=== PATIENT | female | born 1970 | race African-American/Black ===

== ENCOUNTER 2017-11-10 09:12 | Emergency (ER) | payer MEDICAID ==
[~2017-11-10] VITALS: Ht 170.2 cm; Wt 50.0 kg
[2017-11-10] MEDS ORDERED: IBUPROFEN 600MG TABLET PO STA (09:59)
[2017-11-10 10:35] LABS: BASOPHILS % 0.9 % (0.0-2.0); EOSINOPHILS % 1.5 % (0.0-5.0); HEMATOCRIT. 32.9 % (36.0-48.0); HEMOGLOBIN. 11.5 g/dL (12.0-16.0); LYMPHOCYTES % 18.5 % (20.0-50.0); MEAN CORPUSCULAR VOLUME 91.4 fL (81.0-99.0); MEAN PLATELET VOLUME 7.1 fl (7.4-10.4); MONOCYTES % 6.2 % (2.0-8.0); NEUTROPHILS % 72.9 % (40.0-76.0); PLATELET 275 x1000/uL (130-400); RED BLOOD CELL COUNT 3.59 mill/uL (4.2-5.4); RED CELL DISTRIBUTION WIDTH 13.6 % (11.6-14.6)
[2017-11-10 10:41] LABS: CHLORIDE 110 mEq/L (98-107)
[2017-11-10 10:46] LABS: D-DIMER 0.29 mg/L FEU (<0.50); INR 1.1; PARTIAL THROMBOPLASTIN TIME 24.3 sec (23.4-31.0); PROTHROMBIN TIME 11.7 sec (9.4-11.6)
[2017-11-10 10:56] LABS: HCG SCREEN NEGATIVE
[2017-11-10 11:27] VITALS: BP 118/70
== END 2017-11-10 11:29 | disposition home or self-care (01) ==
LOC: ER 10:00
DX: R07.89 Other chest pain (principal); D64.9 Anemia, unspecified; F43.9 Reaction to severe stress, unspecified; F17.200 Nicotine dependence, unspecified, uncomplicated; F12.10 Cannabis abuse, uncomplicated
CPT/HCPCS: 36415; 71045; 80053; 83690; 84484; 84703; 85025; 85379; 85610; 85730; 93005; 99285; 99406; Z7610

== ENCOUNTER 2020-08-02 17:58 | Emergency (ER) | payer MEDICAID, OTHER ==
[~2020-08-02] VITALS: Ht 170.2 cm; Wt 51.0 kg
[2020-08-02] MEDS ORDERED: ACETAMINOPHEN 325MG TABLET PO STA (18:39)
[2020-08-02 19:34] LABS: BASOPHILS % 0.6 % (0.0-2.0); HEMATOCRIT. 35.2 % (36.0-48.0); HEMOGLOBIN. 12.7 g/dL (12.0-16.0); LYMPHOCYTES % 22.4 % (20.0-50.0); MEAN CORPUSCULAR HEMOGLOBIN 33.5 pg (28.0-32.0); MEAN CORPUSCULAR VOLUME 93.1 fL (81.0-99.0); MEAN PLATELET VOLUME 6.9 fl (7.4-10.4); MONOCYTES % 4.7 % (2.0-8.0); NEUTROPHILS % 71.3 % (40.0-76.0); PLATELET 351 x1000/uL (130-400); RED BLOOD CELL COUNT 3.78 mill/uL (4.2-5.4); RED CELL DISTRIBUTION WIDTH 12.8 % (11.6-14.6)
[2020-08-02 19:40] LABS: CHLORIDE 106 mEq/L (98-107)
[2020-08-02 22:00] VITALS: BP 118/67
[2020-08-02 22:00] LABS: CLARITY URINE CLOUDY (CLEAR); COLOR URINE YELLOW (YELLOW); KETONES URINE NEGATIVE (NEGATIVE); LEUKOCYTE ESTERASE URINE TRACE (NEGATIVE); NITRITE URINE NEGATIVE (NEGATIVE); OCCULT BLOOD URINE NEGATIVE (NEGATIVE); PH URINE 8.5 (4.5-8.0); PROTEIN URINE NEGATIVE (NEGATIVE); SPECIFIC GRAVITY URINE 1.019 (1.005-1.030); UROBILINOGEN URINE 0.2 E.U./dL (0.2-1.0)
[2020-08-02] MEDS ORDERED: MAGNESIUM/ALUMINUM HYDROXIDE/SIMETHICONE 30ML UDC PO STA (22:22)
[2020-08-02] MEDS ORDERED: DICYCLOMINE 10 MG/5 ML ORAL SYR PO STA (22:22)
[2020-08-02] MEDS ORDERED: VISCOUS LIDOCAINE 2% 15 ML UDC PO STA (22:22)
[2020-08-02 22:38] LABS: HCG SCREEN NEGATIVE
== END 2020-08-02 22:38 | disposition home or self-care (01) ==
LOC: ER 17:58
DX: R10.33 Periumbilical pain (principal); R03.0 Elevated blood-pressure reading, without diagnosis of hypertension; I44.7 Left bundle-branch block, unspecified
CPT/HCPCS: 36415; 80053; 81003; 84703; 85025; 93005; 99284